=== PATIENT | male | born 1985 | race Caucasian/White ===

== ENCOUNTER → 2016-06-28 | Outpatient (CLI) | payer OTHER ==
--- NOTE | 2016-06-30 08:44 | REP ---
MRI LUMBAR SPINE WITHOUT CONTRAST: HISTORY: Right sciatica. Decreased signal intensity on T2-weighted images is present in the L3-4 through L5-S1 intervertebral discs. The discs are decreased in height. These findings are consistent with disc degeneration. There is no disc bulge or herniation at the L1-2 and L2-3 levels. The nerves exit the neural foramina without compression. A diffuse disc bulge is present at the L3-4 level. There is minimal compression of the thecal sac. The L3 nerves exit the neural foramina without compression. A diffuse disc bulge and small central disc extrusion are present at the L4-5 level. There is minimal compression of the thecal sac. The L4 nerves exit the neural foramina without compression. A diffuse disc bulge and large central disc extrusion are present at the L5-S1 level. There is inferior migration of disc material. There is moderate compression of the thecal sac and S1 nerves as they exit the thecal sac. There is compression of the right L5 nerve in the neural foramen. The left L5 nerve exit the neural foramen without compression. The conus medullaris is normal in appearance terminating at the level of the T12-L1 intervertebral disc. Increased signal intensity on T2-weighted images is present in the end plates of the L4-S1 vertebral bodies. This represents degenerative change. IMPRESSION: 1. Diffuse disc bulge at the L3-4 level with minimal thecal sac compression. 2. Diffuse disc bulge and small central disc extrusion at the L4-5 level with minimal thecal sac compression. 3. Diffuse disc bulge and large central disc extrusion at the L5-S1 level with moderate compression of the thecal sac and S1 nerves as they exit the thecal sac. There is compression of the right L5 nerve in the neural foramen. Signed by Dejon Silva MD 06/30/2016 08:54 A
== END ==
LOC: M RAD 09:35
PROVIDERS: ATTEND Family Medicine
DX: M54.31 Sciatica, right side (principal); M51.26 Other intervertebral disc displacement, lumbar region

== ENCOUNTER → 2016-12-30 | Outpatient (CLI) | payer OTHER ==
--- NOTE | 2016-12-30 16:54 | REP ---
Sacrum and coccyx three views: Comparison is the AP view of the pelvis dated [birth year]/1959 1007. Mineralization is normal. The sacroiliac articulations are unremarkable. The sacral ala and foramen are unremarkable. There is no fracture. Impression: Negative plain film study of the sacrum and coccyx. Signed by Angelo Bradford MD 12/30/2016 04:46 P
--- NOTE | 2016-12-30 16:58 | REP ---
Lumbar spine five views: Comparison is 05/03/2016. Vertebral body heights, interspacing alignment are normal except for mild disc space narrowing at L5 S1 compatible with mild degenerative disc disease at this level. There is no spondylolysis or spondylolisthesis. The pedicles, facets and sacroiliac articulations are unremarkable. Impression: Mild L5 S1 degenerative disc disease. Signed by Angelo Bradford MD 12/30/2016 04:50 P
== END ==
LOC: M LRY 15:57
PROVIDERS: ATTEND Nurse Practitioner Family
DX: M54.42 Lumbago with sciatica, left side (principal)

== ENCOUNTER → 2016-12-30 | Outpatient (CLI) | payer OTHER | LOC: M LRY 15:51 | PROVIDERS: ATTEND Nurse Practitioner Family | DX: M54.42 Lumbago with sciatica, left side (principal); Z53.9 Procedure and treatment not carried out, unspecified reason ==

== ENCOUNTER → 2017-05-29 | Outpatient (REF) | payer OTHER | LOC: M SFHCLERA 16:23 | PROVIDERS: ATTEND Nurse Practitioner Family | DX: J02.9 Acute pharyngitis, unspecified (principal) ==

== ENCOUNTER 2017-09-29 00:53 | Emergency (ER) | payer OTHER ==
[2017-09-29] MEDS: CETACAINE SPRAY 5GM TOP (01:30)
[2017-09-29] MEDS: BUPIVACAINE HCL 0.5% 30 ML VIAL SC (01:30)
== END 2017-09-29 02:19 | disposition home or self-care (01) ==
LOC: M ED 00:53
DX: K08.89 Other specified disorders of teeth and supporting structures (principal); K21.9 Gastro-esophageal reflux disease without esophagitis; Z87.891 Personal history of nicotine dependence; Z79.899 Other long term (current) drug therapy; Z79.2 Long term (current) use of antibiotics
CPT/HCPCS: 64400

== ENCOUNTER → 2018-04-21 | Outpatient (CLI) | payer OTHER ==
[2018-04-21 09:21] LABS: HEMATOCRIT 41.9 % (42.0-52.0); HEMOGLOBIN 14.7 g/dl (13.5-17.5); MEAN CORPUSCULAR HEMOGLOBIN 30.1 pg (27.0-33.0); MEAN CORPUSCULAR HGB CONC 35.1 g/dl (32.0-36.5); MEAN CORPUSCULAR VOLUME 85.9 fl (80.0-96.0); PLATELET COUNT, AUTOMATED 238 10^3/uL (150-450); RED BLOOD COUNT 4.88 10^6/uL (4.30-6.10); RED CELL DISTRIBUTION WIDTH 12.6 % (11.5-14.5); WHITE BLOOD COUNT 4.7 10^3/uL (4.0-10.0)
[2018-04-21 09:42] LABS: ALBUMIN 4.2 GM/DL (3.2-5.2); ALKALINE PHOSPHATASE 61 U/L (45-117); ALT/SGPT 39 U/L (12-78); ANION GAP 5 MEQ/L (8-16); AST/SGOT 28 U/L (7-37); BILIRUBIN,TOTAL 0.7 MG/DL (0.2-1.0); BLOOD UREA NITROGEN 19 MG/DL (7-18); CALCIUM LEVEL 8.8 MG/DL (8.5-10.1); CARBON DIOXIDE LEVEL 28 MEQ/L (21-32); CHLORIDE LEVEL 107 MEQ/L (98-107); CHOLESTEROL LEVEL 155 MG/DL (<200); CHOLESTEROL RISK RATIO 2.672 (<5); CREATININE FOR GFR 0.94 MG/DL (0.70-1.30); GLOMERULAR FILTRATION RATE > 60.0 (>60); GLUCOSE, FASTING 97 MG/DL (70-100); HDL CHOLESTEROL 58 MG/DL (>40); LDL CHOLESTEROL 87 MG/DL (<100); NON-HDL-C 97 MG/DL; POTASSIUM SERUM 4.6 MEQ/L (3.5-5.1); SODIUM LEVEL 140 MEQ/L (136-145); TESTOSTERONE 793 NG/DL (241-827); THYROID STIMULATING HORMONE 0.928 uIU/ML (0.358-3.740); TOTAL 25(OH) VITAMIN D 30.3 NG/ML (30.0-100.0); TRIGLYCERIDES LEVEL 51 MG/DL (<150)
[2018-04-21 11:30] LABS: ESTIMATED AVERAGE GLUCOSE 97 MG/DL (60-110)
== END ==
LOC: M LAB 08:30
DX: E03.9 Hypothyroidism, unspecified (principal); R53.83 Other fatigue; I10 Essential (primary) hypertension; R00.1 Bradycardia, unspecified; I49.9 Cardiac arrhythmia, unspecified
CPT/HCPCS: 71046

== ENCOUNTER 2018-08-13 18:30 | Emergency (ER) | payer OTHER ==
[~2018-08-13] VITALS: Ht 180.3 cm; Wt 105.4 kg
[~2018-08-13 18:30] MED LIST: AUGM500T34 PO; CLEO300C2 PO; FAMO40SU4 PO; IBUP1TAB7 PO; [UNRECOGNIZED DRUG - CODE] IV
[2018-08-13] MEDS ORDERED: LISI10TA4 (18:36)
[2018-08-13] MEDS ORDERED: KETOROLAC 30 MG/ML VIAL (J1885) IV ONE (19:30)
[2018-08-13] MEDS ORDERED: ADACEL/BOOSTRIX VACCINE (DIPHTH/PERTUSS/ACELL/TETANUS)0.5ML SYR (90715) IM ONE (19:30)
[2018-08-13] MEDS ORDERED: CEFTAROLINE FOSAMIL 600 MG in D5W MINI-BAG PLUS 50 ML IV ONE (19:30)
[2018-08-13 19:40] LABS: HEMATOCRIT 43.2 % (42.0-52.0); HEMOGLOBIN 15.2 g/dl (13.5-17.5); MEAN CORPUSCULAR HEMOGLOBIN 30.5 pg (27.0-33.0); MEAN CORPUSCULAR HGB CONC 35.2 g/dl (32.0-36.5); MEAN CORPUSCULAR VOLUME 86.6 fl (80.0-96.0); PLATELET COUNT, AUTOMATED 258 10^3/uL (150-450); RED BLOOD COUNT 4.99 10^6/uL (4.30-6.10)
--- NOTE | 2018-08-13 19:53 | REP ---
Right elbow for views : There is no fracture or dislocation. Mineralization and joint spaces are normal. There are no calcifications or foreign bodies. Impression: Negative right elbow . Electronically Signed by Angelo Bradford MD 08/13/2018 07:45 P
[2018-08-13 19:59] LABS: ERYTHROCYTE SEDIMENTATION RATE 3 mm/hr (0-15)
[2018-08-13 20:09] LABS: BLOOD UREA NITROGEN 16 MG/DL (7-18); C REACTIVE PROTEIN QUANTITATIV 0.43 MG/DL (0.00-0.30); CALCIUM LEVEL 8.4 MG/DL (8.5-10.1); CARBON DIOXIDE LEVEL 26 MEQ/L (21-32); CHLORIDE LEVEL 107 MEQ/L (98-107); CREATININE FOR GFR 0.92 MG/DL (0.70-1.30); GLOMERULAR FILTRATION RATE > 60.0 (>60); GLUCOSE, FASTING 96 MG/DL (70-100); POTASSIUM SERUM 3.7 MEQ/L (3.5-5.1); SODIUM LEVEL 139 MEQ/L (136-145)
[2018-08-13] MEDS ORDERED: KEFL500C17 PO (20:50)
[2018-08-13 20:53] VITALS: BP 131/75
== END 2018-08-13 20:56 | disposition home or self-care (01) ==
LOC: M ED 18:30
DX: L03.115 Cellulitis of right lower limb (principal); I10 Essential (primary) hypertension; Z79.899 Other long term (current) drug therapy
CPT/HCPCS: 73080; 80048; 84550; 85027; 85652; 86140; 90471; 90715; 96365; 96375; 99284; J0712; J1885

== ENCOUNTER → 2018-08-23 | Outpatient (CLI) | payer OTHER ==
[~2018-08-23] MED LIST changes: +KEFL500C17 PO; +LISI10TA4
--- NOTE | 2018-08-24 03:42 | REP ---
Clinical: Back pain and sciatica . Technique: AP, lateral, bilateral oblique, and coned-down views. Findings: Alignment and lordosis is maintained. The vertebral bodies including transverse process and spinous processes are intact and there is no evidence for acute fracture / compression injury or subluxation. Endplate sclerosis and disc space narrowing at L5-S1 noted with possible narrowing to the associated neural foramen. Impression: Lateral view suggests moderate degenerative disc disease and L5-S1. Electronically Signed by Cal Pennington MD 08/24/2018 03:33 A
== END ==
LOC: M RAD 12:33
PROVIDERS: ATTEND Family Medicine
DX: M54.30 Sciatica, unspecified side (principal)

== ENCOUNTER 2019-02-02 10:28 | Emergency (ER) | payer OTHER ==
[~2019-02-02] VITALS: Ht 180.3 cm; Wt 92.3 kg
[2019-02-02 10:28] VITALS: BP 118/66
[~2019-02-02 10:28] MED LIST changes: +FAMO40SU2 PO; -FAMO40SU4 PO
[2019-02-02] MEDS ORDERED: TRAM50TA2 (10:33)
[2019-02-02] MEDS ORDERED: GABA-843 (10:33)
[2019-02-02] MEDS ORDERED: OMEP-218 (10:33)
[2019-02-02] MEDS ORDERED: LIDOCAINE W/EPINEPHRINE 1% 20ML VIAL SC ONE (12:15)
--- NOTE | 2019-02-02 12:43 | REP ---
RIGHT FOOT SERIES: Four views. HISTORY: Rule out glass foreign body. FINDINGS: Four views of the right foot show no opaque foreign body. There is a calcification adjacent to the distal tuft of the great toe which appears well corticated and old. No acute fracture is seen. No soft tissue gas is appreciated. IMPRESSION: No opaque foreign body noted. No fracture noted. Electronically Signed by Jerson Ferrell MD 02/02/2019 04:40 P
== END 2019-02-02 12:50 | disposition home or self-care (01) ==
LOC: M ED 10:28
DX: S91.311A Laceration without foreign body, right foot, initial encounter (principal); W22.8XXA Striking against or struck by other objects, initial encounter; Y92.9 Unspecified place or not applicable; Y93.9 Activity, unspecified; Y99.9 Unspecified external cause status; Z79.899 Other long term (current) drug therapy

== ENCOUNTER → 2019-02-11 | Outpatient (REF) | payer OTHER ==
[~2019-02-11] MED LIST changes: +GABA-843; +OMEP-218; +TRAM50TA2
[2019-02-11 12:48] LABS: BLOOD UREA NITROGEN 16 MG/DL (7-18); C REACTIVE PROTEIN QUANTITATIV < 0.30 MG/DL (0.00-0.30); CREATININE FOR GFR 0.88 MG/DL (0.70-1.30); GLOMERULAR FILTRATION RATE > 60.0 (>60); RHEUMATOID FACTOR QUANT < 10.0 IU/ML (<15.0)
[2019-02-16 14:15] LABS: ANTINUCLEAR ANTIBODIES DIRECT Negative (Negative); HLA-B27 Positive (.)
== END ==
LOC: M LABDRAW1 12:03
PROVIDERS: ATTEND Physician Assistant
DX: M47.817 Spondylosis without myelopathy or radiculopathy, lumbosacral region (principal)

== ENCOUNTER 2019-06-10 17:00 | Emergency (ER) | payer OTHER ==
[~2019-06-10] VITALS: Ht 180.3 cm; Wt 86.0 kg
[2019-06-10 19:15] VITALS: BP 116/70
== END 2019-06-10 19:18 | disposition home or self-care (01) ==
LOC: M ED 17:00
DX: F43.0 Acute stress reaction (principal); D89.9 Disorder involving the immune mechanism, unspecified; M54.5 Low back pain

== ENCOUNTER 2020-03-27 09:23 | Emergency (ER) | payer OTHER ==
[~2020-03-27] VITALS: Ht 182.9 cm; Wt 90.7 kg
[2020-03-27 09:23] VITALS: BP 137/75
[2020-03-27] MEDS ORDERED: MELO7.5T35 PO (09:32)
[2020-03-27] MEDS ORDERED: PRED5TA PO (09:32)
[2020-03-27] MEDS ORDERED: DULO1CAP6 PO (09:32)
[2020-03-27] MEDS ORDERED: ETAN50PE IM (09:32)
[2020-03-27] MEDS ORDERED: CYCL-707 PO (09:32)
[2020-03-27] MEDS ORDERED: FOLI1TAB11 PO (09:32)
--- NOTE | 2020-03-27 09:46 | REPVR ---
PROCEDURE INFORMATION: Exam: XR Left Shoulder Exam date and time: 03/27/2020 9:42 AM Age: 35 years old Clinical indication: Pain; Shoulder; Left TECHNIQUE: Imaging protocol: XR Left shoulder. Views: 2 or more views. COMPARISON: No relevant prior studies available. FINDINGS: Bones/joints: No significant bony or articular abnormality is identified. Soft tissues: The soft tissues appear grossly unremarkable. IMPRESSION: Unremarkable radiographic appearance of the left shoulder. Electronically signed by: Omar Eubanks On 03/27/2020 09:46:18 AM
== END 2020-03-27 10:27 | disposition home or self-care (01) ==
LOC: M ED 09:23
DX: S43.52XA Sprain of left acromioclavicular joint, initial encounter (principal); X50.0XXA Overexertion from strenuous movement or load, initial encounter; Y92.019 Unspecified place in single-family (private) house as the place of occurrence of the external cause; Y93.83 Activity, rough housing and horseplay; I10 Essential (primary) hypertension; M79.7 Fibromyalgia; Z79.899 Other long term (current) drug therapy

== ENCOUNTER → 2020-05-16 | Outpatient (CLI) | payer SELFPAY ==
[~2020-05-16] MED LIST changes: +CYCL-707 PO; +DULO1CAP6 PO; +ETAN50PE IM; +FOLI1TAB11 PO; +MELO7.5T35 PO; +PRED5TA PO
== END ==
LOC: M LABSMTC 10:13
PROVIDERS: ATTEND Pediatrics
DX: Z11.59 Encounter for screening for other viral diseases (principal)

== ENCOUNTER → 2020-06-20 | Outpatient (CLI) | payer OTHER ==
[~2020-06-20] MED LIST changes: +GABA-282; -GABA-843
--- NOTE | 2020-06-21 14:45 | SLEEPHOME ---
DATE: 06/20/2020 ORDERED BY: Piper Shaw NP Diagnostic home sleep testing was performed due to concern for the obstructive sleep apnea syndrome in this patient with a history of excessive somnolence, snoring, and nonrestorative sleep. Eleven hours and 16 minutes of data were reviewed. There were 8 hours and 28 minutes marked as time in bed. During the interval marked time in bed, there were 135 respiratory events identified of 10 seconds in duration or greater for a respiratory event index of 15.9. The events were primarily obstructive. There were 8 mixed and central apneas seen. Baseline pulse rate was 68. Pulse rate ranged 50 to 136. Baseline saturation was 94%. Saturations fell to 88% and testing was performed in both the supine and nonsupine positions. IMPRESSION: Abnormal home sleep testing with repetitive respiratory events and oxygen desaturations to 88% is consistent with the obstructive sleep apnea syndrome. RECOMMENDATION: The patient should be encouraged to undergo a formal sleep evaluation. Dr. Jayden Mccallum
== END ==
LOC: M SLEEP HO 13:06
PROVIDERS: ATTEND Nurse Practitioner Family
DX: R06.83 Snoring (principal); R40.0 Somnolence

== ENCOUNTER 2020-10-21 19:06 | Emergency (ER) | payer OTHER ==
[~2020-10-21] VITALS: Ht 182.9 cm; Wt 94.6 kg
[~2020-10-21 19:06] MED LIST changes: +LISI10TA22; -LISI10TA4
[2020-10-21] MEDS ORDERED: PERCOCET 5MG/325MG TAB PO ONE (21:55)
[2020-10-21 22:15] VITALS: BP 121/73
== END 2020-10-21 22:14 | disposition home or self-care (01) ==
LOC: M ED 19:06
DX: S46.002A Unspecified injury of muscle(s) and tendon(s) of the rotator cuff of left shoulder, initial encounter (principal); X58.XXXA Exposure to other specified factors, initial encounter; Y92.9 Unspecified place or not applicable; Y93.9 Activity, unspecified; Y99.9 Unspecified external cause status; Z79.899 Other long term (current) drug therapy

== ENCOUNTER → 2020-12-31 | Outpatient (CLI) | payer OTHER ==
[~2020-12-31] MED LIST changes: +ISOVUE-300 61% 50ML VIAL As Ordered ONE; +PROHANCE 279.3MG/ML 5ML VIAL As Ordered ONE
--- NOTE | 2020-12-31 15:25 | REP ---
INDICATION: PAIN LT SHOULDER , R/O LABRAL TEAR. COMPARISON: Comparison radiographs of the left shoulder are from March 27, 2020.. TECHNIQUE: The injection procedure is performed and dictated separately. Pre and post intra-articular gadolinium enhanced saline injected imaging is acquired. Imaging planes include axial, oblique coronal, oblique sagittal and ABER projection images. T1 and T2-weighted scans are included with and without fat saturation. FINDINGS: Pre-injection imaging demonstrates a prominent pattern of marrow edema on either side of the narrowed acromioclavicular joint. There is subcortical cyst formation, superior inferior hypertrophy, and a tiny sliver of joint fluid consistent with osteoarthritis with secondary marrow edema. There is no evidence of occult fracture. The cortical and medullary bone signal intensity are normal about the glenohumeral articulation. There are 1 or 2 tiny subcortical cysts in the posterolateral humeral head. The infraspinatus and subscapularis tendons appear intact. Biceps tendon is unremarkable. There is no evidence of full-thickness or focal partial he a thickness supraspinatus tear. A tiny sliver of subacromial subdeltoid bursal fluid is seen on T2 weighted scans. No superior, anterior, or posterior labral cartilage tear is seen. No focal cartilage defect is observed. Post injection imaging demonstrates good filling and enhancement of the left glenohumeral articulation. No loose body is seen. Axial and ABER images taken after contrast injection shows no evidence of labral cartilage tear. T1 fat sat post injection images show no evidence of rotator cuff tear. IMPRESSION: Moderate to advanced arthropathy involving the AC joint consistent with osteoarthritis versus posttraumatic arthropathy. No occult fracture is seen. There is a prominent pattern of marrow edema at the AC joint. Small sliver of subacromial subdeltoid bursal fluid. Otherwise negative. <Electronically signed by Sarkis Ferrell > 12/31/20 [id number]
--- NOTE | 2021-01-01 08:02 | REP ---
INDICATION: PAIN LT SHOULDER , R/O LABRAL TEAR COMPARISON: None. TECHNIQUE: The procedure was performed under the direct supervision of Dr. Ferrell. The benefits and risks including but not limited to pain, infection, bleeding and anaphylaxis were explained to the patient and informed consent was obtained. The left glenohumeral joint space was localized using fluoroscopic guidance. The skin was prepped and draped in a sterile fashion. 1% lidocaine was used as a local anesthetic. Using fluoroscopic guidance a 22 gauge spinal needle was inserted and advanced into the joint. 0.5 ml of Isovue-300 was injected to verify placement. 11 ml of a solution containing 20 ml of sterile saline and 0.15 ml of ProHance was injected into the joint. The needle was removed and the patient was taken to MRI for postprocedural imaging. The patient tolerated the procedure well and there were no immediate complications. Less than 6 seconds of fluoro time was utilized for this procedure. FINDINGS: None IMPRESSION: Fluoro guidance for left shoulder MRI arthrogram injection. <Electronically signed by Jp Wang > 12/31/20 [id number] <Electronically signed by Sarkis Ferrell > 01/01/21 [id number]
== END ==
LOC: M RADPRO 12:48
PROVIDERS: ATTEND Physician Assistant
DX: M25.512 Pain in left shoulder (principal)
CPT/HCPCS: 23350; 73223; 77002; A9576; Q9967

== ENCOUNTER → 2021-10-18 | Outpatient (REF) | payer OTHER ==
[~2021-10-18] MED LIST changes: -ISOVUE-300 61% 50ML VIAL As Ordered ONE; +OMEP-173; -OMEP-218; -PROHANCE 279.3MG/ML 5ML VIAL As Ordered ONE
[2021-10-18 12:40] LABS: BASO # 0.1 10^3/uL (0.0-0.2); BASO % 0.4 % (0.0-1.0); EOS # 0.1 10^3/uL (0.0-0.5); EOS % 0.8 % (0.0-3.0); HEMATOCRIT 43.2 % (42.0-52.0); HEMOGLOBIN 14.8 g/dl (13.5-17.5); LYMPH # 1.3 10^3/uL (1.5-5.0); LYMPH % 10.1 % (24.0-44.0); MEAN CORPUSCULAR HEMOGLOBIN 31.4 pg (27.0-33.0); MEAN CORPUSCULAR HGB CONC 34.3 g/dl (32.0-36.5); MEAN CORPUSCULAR VOLUME 91.7 fl (80.0-96.0); MONO # 0.4 10^3/uL (0.0-0.8); MONO % 3.6 % (2.0-8.0); NEUTROPHILS # 10.4 10^3/uL (1.5-8.5); NEUTROPHILS % 84.4 % (36.0-66.0); PLATELET COUNT, AUTOMATED 321 10^3/uL (150-450); RED BLOOD COUNT 4.71 10^6/uL (4.30-6.10); WHITE BLOOD COUNT 12.4 10^3/uL (4.0-10.0)
[2021-10-18 13:17] LABS: ERYTHROCYTE SEDIMENTATION RATE 4 mm/hr (0-15)
[2021-10-18 13:18] LABS: ALBUMIN 4.4 GM/DL (3.2-5.2); ALT/SGPT 36 U/L (12-78); BILIRUBIN,DIRECT 0.2 MG/DL (0.0-0.2); BILIRUBIN,TOTAL 0.4 MG/DL (0.2-1.0); BLOOD UREA NITROGEN 23 MG/DL (7-18); CALCIUM LEVEL 9.3 MG/DL (8.5-10.1); CARBON DIOXIDE LEVEL 26 MEQ/L (21-32); CHLORIDE LEVEL 107 MEQ/L (98-107); CREATININE FOR GFR 0.87 MG/DL (0.70-1.30); GLOMERULAR FILTRATION RATE > 60.0 (>60); GLUCOSE, FASTING 89 MG/DL (70-100); IRON (FE) 90 UG/DL (65-175); MAGNESIUM LEVEL 2.3 MG/DL (1.8-2.4); PHOSPHORUS LEVEL 1.9 MG/DL (2.5-4.9); POTASSIUM SERUM 4.4 MEQ/L (3.5-5.1); SODIUM LEVEL 137 MEQ/L (136-145); THYROID STIMULATING HORMONE 0.538 uIU/ML (0.358-3.740); TOTAL 25(OH) VITAMIN D 25.9 NG/ML (30.0-100.0); TOTAL PROTEIN 7.6 GM/DL (6.4-8.2); VITAMIN B12 LEVEL 684 PG/ML (247-911)
[2021-10-18 13:35] LABS: HEMOGLOBIN A1c 5.1 %
== END ==
LOC: M SFHCRHEU 10:42
PROVIDERS: ATTEND Internal Medicine
DX: M25.50 Pain in unspecified joint (principal); M79.10 Myalgia, unspecified site; Z79.52 Long term (current) use of systemic steroids

== ENCOUNTER 2022-01-29 09:43 | Emergency (ER) | payer OTHER ==
[~2022-01-29] VITALS: Ht 180.3 cm; Wt 95.5 kg
[2022-01-29 10:20] LABS: BASO # 0.1 10^3/uL (0.0-0.2); EOS # 0.8 10^3/uL (0.0-0.5); HEMATOCRIT 48.1 % (42.0-52.0); HEMOGLOBIN 16.3 g/dl (13.5-17.5); LYMPH # 1.4 10^3/uL (1.5-5.0); LYMPH % 16.3 % (24.0-44.0); MEAN CORPUSCULAR HEMOGLOBIN 30.5 pg (27.0-33.0); MEAN CORPUSCULAR HGB CONC 33.9 g/dl (32.0-36.5); MEAN CORPUSCULAR VOLUME 90.1 fl (80.0-96.0); MONO # 0.8 10^3/uL (0.0-0.8); MONO % 9.1 % (2.0-8.0); NEUTROPHILS # 5.6 10^3/uL (1.5-8.5); NEUTROPHILS % 64.1 % (36.0-66.0); PLATELET COUNT, AUTOMATED 308 10^3/uL (150-450); RED BLOOD COUNT 5.34 10^6/uL (4.30-6.10); WHITE BLOOD COUNT 8.7 10^3/uL (4.0-10.0)
[2022-01-29 10:35] LABS: INR 0.94; PROTHROMBIN TIME 12.9 SECONDS (12.7-14.5)
[2022-01-29 10:57] LABS: CK-MB VALUE MASS < 1.0 NG/ML (<3.6); CPK CREATINE PHOSPHOKINASE 127 U/L (39-308); MB/CK RELATIVE INDEX 0.79 (< OR =4)
[2022-01-29 11:32] LABS: BLOOD UREA NITROGEN 13 MG/DL (7-18); CALCIUM LEVEL 9.6 MG/DL (8.5-10.1); CARBON DIOXIDE LEVEL 24 mmol/L (20-29); CHLORIDE LEVEL 101 MEQ/L (98-107); CREATININE FOR GFR 0.85 MG/DL (0.70-1.30); GLOMERULAR FILTRATION RATE > 60.0 (>60); GLUCOSE, FASTING 97 MG/DL (70-100); POTASSIUM SERUM 4.7 MEQ/L (3.5-5.1); SODIUM LEVEL 133 MEQ/L (136-145)
[2022-01-29 11:33] LABS: ALT/SGPT 145 IU/L (0-32); BILIRUBIN,DIRECT 0.3 MG/DL (0.0-0.2); BILIRUBIN,TOTAL 0.7 MG/DL (0.2-1.0); NT-PRO BNP 7 PG/ML (<125); THYROID STIMULATING HORMONE 0.797 uIU/ML (0.358-3.740); TOTAL PROTEIN 7.6 GM/DL (6.4-8.2)
[2022-01-29 12:23] LABS: CK-MB VALUE MASS < 1.0 NG/ML (<3.6); CPK CREATINE PHOSPHOKINASE 101 U/L (39-308); MB/CK RELATIVE INDEX 0.99 (< OR =4)
[2022-01-29 13:17] LABS: LIPASE 175 U/L (73-393)
[2022-01-29 14:23] VITALS: BP 112/75
== END 2022-01-29 14:24 | disposition home or self-care (01) ==
LOC: M ED 09:43 → EDBD 09:43 → M ED 14:24
DX: R07.9 Chest pain, unspecified (principal); R16.0 Hepatomegaly, not elsewhere classified; I10 Essential (primary) hypertension; F10.10 Alcohol abuse, uncomplicated; F15.10 Other stimulant abuse, uncomplicated; M06.9 Rheumatoid arthritis, unspecified; D89.9 Disorder involving the immune mechanism, unspecified; Z79.811 Long term (current) use of aromatase inhibitors; Z79.899 Other long term (current) drug therapy

== ENCOUNTER 2023-07-21 21:06 | Emergency (ER) | payer OTHER ==
[~2023-07-21] VITALS: Ht 180.3 cm; Wt 79.5 kg
[~2023-07-21 21:06] MED LIST changes: -FAMO40SU2 PO; +FAMO40SU9 PO
[2023-07-21] MEDS: KETOROLAC 30 MG/ML 1ML VIAL IM ONE (21:57)
[2023-07-21 23:13] VITALS: BP 135/75; TEMP 98.3; O2SAT 99
== END 2023-07-21 23:17 | disposition home or self-care (01) ==
LOC: M ED 21:06
DX: S93.401A Sprain of unspecified ligament of right ankle, initial encounter (principal); W19.XXXA Unspecified fall, initial encounter; Y92.009 Unspecified place in unspecified non-institutional (private) residence as the place of occurrence of the external cause; Y93.89 Activity, other specified; Y99.9 Unspecified external cause status; Z79.811 Long term (current) use of aromatase inhibitors; Z79.52 Long term (current) use of systemic steroids; Z79.83 Long term (current) use of bisphosphonates; Z79.899 Other long term (current) drug therapy
CPT/HCPCS: 73610; 96372; 99284; J1885

== ENCOUNTER → 2023-07-29 | Outpatient (CLI) | payer OTHER | LOC: M RAD 15:11 | PROVIDERS: ATTEND Physician Assistant | DX: M79.604 Pain in right leg (principal) ==

== ENCOUNTER 2023-12-01 08:52 | Inpatient (IN) | payer MEDICAID, OTHER ==
[~2023-12-01] VITALS: Ht 180.3 cm; Wt 74.8 kg
[2023-12-01] MEDS ORDERED: HOME MED LIST COMPLETE! XX SCH (09:15)
[2023-12-01 10:29] LABS: HEMOGLOBIN 16.8 g/dl (13.5-17.5); MEAN CORPUSCULAR HEMOGLOBIN 32.1 pg (27.0-33.0); MEAN CORPUSCULAR VOLUME 91.8 fl (80.0-96.0); PLATELET COUNT, AUTOMATED 223 10^3/uL (150-450); RED BLOOD COUNT 5.23 10^6/uL (4.30-6.10)
[2023-12-01 10:56] LABS: ETHYL ALCOHOL (ETHANOL) < 0.003 % (0.000-0.010)
[2023-12-01 10:57] LABS: SALICYLATE LEVEL < 3.0 MG/DL (<30)
[2023-12-01 10:58] LABS: ALBUMIN 4.5 G/DL (3.2-5.2); ALKALINE PHOSPHATASE 109 U/L (46-116); ALT/SGPT 29 U/L (7.0-40); AST/SGOT 24 U/L (<34); BILIRUBIN,DIRECT 0.5 MG/DL (<0.4); BILIRUBIN,TOTAL 1.6 MG/DL (0.3-1.2); BLOOD UREA NITROGEN 19 MG/DL (9-23); CALCIUM LEVEL 9.4 MG/DL (8.5-10.1); CARBON DIOXIDE LEVEL 23 MMOL/L (20-31); CHLORIDE LEVEL 106 MMOL/L (98-107); CREATININE FOR GFR 0.79 MG/DL (0.70-1.30); GLOMERULAR FILTRATION RATE > 60.0 (>60); GLUCOSE, FASTING 81 MG/DL (60-100); POTASSIUM SERUM 4.3 MMOL/L (3.5-5.1); SODIUM LEVEL 139 MMOL/L (136-145); THYROID STIMULATING HORMONE 1.103 uIU/ML (0.55-4.78); TOTAL PROTEIN 7.6 G/DL (5.7-8.2)
[2023-12-01 12:46] LABS: AMPHETAMINES LEVEL URINE NEGATIVE (NEGATIVE); BARBITURATES URINE NEGATIVE (NEGATIVE); BENZODIAZEPINES URINE NEGATIVE (NEGATIVE); COCAINE METABOLITE URINE NEGATIVE (NEGATIVE); METHADONE URINE NEGATIVE (NEGATIVE); OPIATES URINE NEGATIVE (NEGATIVE); PHENCYCLIDINE URINE NEGATIVE (NEGATIVE)
[2023-12-01 12:47] LABS: CANNABINOIDS URINE POSITIVE (NEGATIVE)
[2023-12-01] MEDS: traMADol 50 MG TAB PO ONE (16:01)
[2023-12-01] MEDS: OMEPRAZOLE 20MG CAP PO ONE (16:01)
[2023-12-01] MEDS ORDERED: MOM 30ML SUSPENSION UDC PO PRN (20:45)
[2023-12-01] MEDS ORDERED: diphenhydrAMINE 25MG CAP PO PRN (20:45)
[2023-12-01] MEDS ORDERED: MAALOX 30 ML SUSP *UDC PO PRN (20:45)
[2023-12-01] MEDS: traZODone 50 MG TAB PO PRN (22:57)
[2023-12-01] MEDS: IBUPROFEN 800 MG TAB PO ONE (23:13)
[2023-12-02 01:07] VITALS: BP 130/82; TEMP 97.9; O2SAT 96
[2023-12-02 06:25] VITALS: BP 102/55; TEMP 97.2; O2SAT 100
[2023-12-02] MEDS: SERTRALINE HCL 50 MG TAB PO SCH (11:14)
[2023-12-02] MEDS: NICOTINE 21MG/24HR 1 EA TRANSDERMAL TD SCH (13:03)
[2023-12-02] MEDS: IBUPROFEN 400MG TAB PO PRN (13:04)
[2023-12-02 17:47] VITALS: BP 141/75; TEMP 97.7; O2SAT 94
[2023-12-02] MEDS ORDERED: MAGNESIUM CITRATE 300ML BTL PO ONE (18:30)
[2023-12-02] MEDS ORDERED: MOM 30ML SUSPENSION UDC PO PRN (18:35)
[2023-12-02] MEDS ORDERED: SENOKOT S TAB PO PRN (18:35)
[2023-12-03 06:34] VITALS: BP 122/62; TEMP 97.6; O2SAT 98
[2023-12-03] MEDS ORDERED: TRAZ-252 PO (10:49)
[2023-12-03] MEDS ORDERED: SERT50TA29 PO (10:49)
[2023-12-03] MEDS ORDERED: NICO21PAT TD (10:49)
[2023-12-03] MEDS: ACETAMINOPHEN TAB 650MG DOSE (2X325MG) PO PRN (11:21)
== END 2023-12-03 12:20 | disposition home or self-care (01) | DRG 755 ==
LOC: M ED 08:52 → M ED INP 20:42 → M PSY 22:22
PROVIDERS: ADMIT Student in an Organized Health Care Education/Training Program; ATTEND Student in an Organized Health Care Education/Training Program
DX: F43.10 Post-traumatic stress disorder, unspecified (principal); D89.89 Other specified disorders involving the immune mechanism, not elsewhere classified; R45.851 Suicidal ideations; R45.850 Homicidal ideations; F43.21 Adjustment disorder with depressed mood; M79.7 Fibromyalgia; I10 Essential (primary) hypertension; M54.59 Other low back pain; Z87.891 Personal history of nicotine dependence; F10.10 Alcohol abuse, uncomplicated